=== PATIENT | female | born 1970 | race Caucasian/White ===

== ENCOUNTER → 2022-06-25 11:23 | Outpatient (BNVA) | payer SELFPAY | PROVIDERS: Family Provider Nurse Practitioner; PCP Nurse Practitioner Family; Referring Provider Nurse Practitioner Family; Visit Provider Internal Medicine | DX: E05.90 Thyrotoxicosis, unspecified without thyrotoxic crisis or storm (principal); E04.1 Nontoxic single thyroid nodule | CPT/HCPCS: 36415; 83516; 86376; 86800 ==

== ENCOUNTER 2022-07-02 06:42 | Outpatient (CLI) | payer OTHER, SELFPAY ==
--- NOTE | 2022-07-02 07:00 | US_ITS ---
WS: [email or web address] ULTRASOUND THYROID TECHNIQUE: Ultrasound of the thyroid. CLINICAL INFORMATION: thyroid nodule COMPARISON: Ultrasound thyroid 2007 FINDINGS: Thyroid: Enlarged LEFT greater than RIGHT thyroid lobes with diffuse heterogeneous echotexture Right thyroid lobe: 5.5 cm x 1.7 cm x 1.9 cm RIGHT lobe volume 9.4 cc Small hypoechoic RIGHT inferior thyroid nodule measuring 0.73 x 0.6 x 0.73 cm. Recommend 12 month fol low-up. This is new or increased in size since 2007. Left thyroid lobe: 5.7 cm x 2.4 cm x 2.3 cm. LEFT lobe volume 16.4 cc Previously described complex cyst in the LEFT thyroid has increased in size with a more complex appea lucian today with more solid components. Today this measures approximately 2.7 x 2.2 x 3.1 cm with inc reased vascularity. Isthmus: 0.2 mm. Cervical lymphadenopathy: A few slightly prominent LEFT greater than RIGHT cervical lymph nodes. No l ymphadenopathy. US/US thyroid [id number] IMPRESSION: 1. Enlarged heterogeneous LEFT greater than RIGHT thyroid lobes described abov e. 2. Previously described complex cyst in the LEFT thyroid has increased in size with a more complex appearance today with more solid components. Today this me asures approximately 2.7 x 2.2 x 3.1 cm with increased vascularity. Recommend F urther evaluation with FNA. 3. Small hypoechoic RIGHT inferior thyroid nodule measuring 0.73 x 0.6 x 0.73 cm. Recommend 12 month follow-up. This is new or increased in size since 2007.
== END 2022-07-02 06:43 | disposition home or self-care (01) ==
LOC: RAD 06:45
PROVIDERS: PCP Nurse Practitioner Family; Visit Provider Nurse Practitioner Family
DX: E04.1 Nontoxic single thyroid nodule (principal)
CPT/HCPCS: 76536

== ENCOUNTER 2022-08-03 08:42 | Outpatient (CLI) | payer OTHER, SELFPAY ==
--- NOTE | 2022-08-03 09:15 | US_ITS ---
WS: [email or web address] ULTRASOUND-GUIDED LEFT THYROID NODULE FNA HISTORY: LEFT thyroid nodule. Cystic and solid components with small echogenic foci. Procedure, risks, and complications were explained to the patient. Consent has been obtained. Prior ultrasound 07/02/2022 reviewed. The skin is cleansed with ChloraPrep and anesthetized with 1% buffered lidocaine. FNA performed with 25 gauge needles. mammography technologist is present to fix slides. There is a very small amount o f postprocedure bleeding adjacent to the thyroid which did not increase. US/US biopsy/FNA thyroid [id number] IMPRESSION: Uncomplicated FNA of a LEFT thyroid nodule. Final pathology results pending.
[2022-08-03 09:39] LABS: Thyroid Stimulating Hormone 0.01 uIU/mL (0.27-4.20)
[2022-08-03 10:16] LABS: Free T4 Free Thyroxine 1.08 ng/dL (0.82-1.77)
[2022-08-04 14:50] LABS: T3 Total 140 ng/dL (76-181)
== END 2022-08-03 08:43 | disposition home or self-care (01) ==
LOC: RAD 08:45
PROVIDERS: PCP Nurse Practitioner Family; Visit Provider Nurse Practitioner Family
DX: E04.1 Nontoxic single thyroid nodule (principal)
CPT/HCPCS: 10005; 36415; 84439; 84443; 84480; 88173

== ENCOUNTER 2022-08-25 13:07 | Outpatient (CLI) | payer OTHER, SELFPAY ==
--- NOTE | 2022-08-25 12:45 | US_ITS ---
WS: [email or web address] US pelv w/transvag [id number] HISTORY: pelvic pain and fullness, history of hysterectomy. COMPARISON: None available. Status post hysterectomy. No midline mass identified. No uterus or thickening of the vaginal stump. N o free fluid. Neither ovary is identified within the adnexa. Both transvaginal and transabdominal jean-paul ging was performed. US/US pelv w/transvag [id number] IMPRESSION: Negative pelvic ultrasound. Prior hysterectomy. Neither ovary was identified. No masses.
== END 2022-08-25 13:08 | disposition home or self-care (01) ==
PROVIDERS: PCP Nurse Practitioner Family; Visit Provider Nurse Practitioner Family
DX: N94.10 Unspecified dyspareunia (principal); R10.2 Pelvic and perineal pain
CPT/HCPCS: 76830; 76856

== ENCOUNTER 2022-10-02 09:06 | Outpatient (CLI) | payer OTHER, SELFPAY ==
[2022-10-02 10:51] LABS: Thyroid Stimulating Hormone 0.26 uIU/mL (0.27-4.20)
[2022-10-03 07:44] LABS: T3 Total 131 ng/dL (76-181)
== END 2022-10-02 09:07 | disposition home or self-care (01) ==
PROVIDERS: PCP Nurse Practitioner Family; Visit Provider Internal Medicine
DX: E05.90 Thyrotoxicosis, unspecified without thyrotoxic crisis or storm (principal); E04.1 Nontoxic single thyroid nodule
CPT/HCPCS: 36415; 84439; 84443; 84480

== ENCOUNTER → 2022-10-07 10:35 | Outpatient (BNVA) | payer OTHER, SELFPAY | PROVIDERS: PCP Nurse Practitioner Family; Visit Provider Podiatrist Foot & Ankle Surgery | DX: M25.571 Pain in right ankle and joints of right foot (principal); M25.572 Pain in left ankle and joints of left foot; M24.871 Other specific joint derangements of right ankle, not elsewhere classified; M24.872 Other specific joint derangements of left ankle, not elsewhere classified; R60.0 Localized edema | CPT/HCPCS: 73630 ==

== ENCOUNTER 2022-10-08 08:53 | Outpatient (CLI) | payer OTHER, SELFPAY ==
--- NOTE | 2022-10-08 08:56 | NM_ITS ---
WS: [email or web address] NUCLEAR MEDICINE 24 HOUR I-123 THYROID UPTAKE INDICATION: Hyperthyroidism TECHNIQUE: I-123 24 HOUR THYROID UPTAKE WITH PLANAR IMAGING. 132 UCI RAJ 123 COMPARISON: Ultrasound thyroid July 02, 2022 FINDINGS: Enlarged thyroid. Diffuse homogeneous uptake within the thyroid gland. Normal suprasternal notch marker. Increased 24-hour thyroid uptake 42.5% NORMAL 24H THRYOID UPTAKE 8-35% NM/NM thyroid uptake multi [id number] IMPRESSION: Increased 24-hour thyroid uptake 42.5%
== END 2022-10-08 08:54 | disposition home or self-care (01) ==
LOC: RAD 08:53
PROVIDERS: PCP Nurse Practitioner Family; Visit Provider Internal Medicine
DX: E04.1 Nontoxic single thyroid nodule (principal); E05.90 Thyrotoxicosis, unspecified without thyrotoxic crisis or storm
CPT/HCPCS: 78014; A9516

== ENCOUNTER 2022-11-03 11:36 | Day surgery (SDC) | payer OTHER, SELFPAY ==
[2022-11-02 08:50] VITALS: BMI 35.1
[2022-11-03] VITALS (11 sets, daily range): BP systolic 129–154; BP diastolic 69–93; PULSE 68–84; RESP 16–17; TEMP 36.1–36.7; O2SAT 94–100
--- NOTE | 2022-11-03 11:54 | W.PM.OPSUD ---
Surgery/Procedure H&P Update DATE OF PROCEDURE: November 03, 2022 DATE H&P PERFORMED: 10/20/22 H&P UPDATE INFORMATION: I have reviewed H&P completed within last 30 days, I have examined patient prior to procedure and No changes to prior documentation CHANGES TO PREVIOUS DOCUMENTATION: No changes PREOP DIAGNOSIS: Left thyroid nodule PRIMARY INDICATION FOR PROCEDURE: Left thyroid nodule PLANNED PROCEDURE: Operation Date: 11/03/22 13:20 Proposed Procedures p 46420- left hemithyroidectomy with isthmusectomy E04.1(Left) - Leonard Encarnacion MD
[2022-11-03] MEDS: sodium chloride 0.9% 1,000 ML 30 ML IV (12:15)
[2022-11-03 12:45] LABS: Chloride 104 mmol/L (98-107); Potassium 4.1 mmol/L (3.5-5.1); Sodium 141 mmol/L (136-145)
[2022-11-03 13:11] LABS: Anion Gap 14.1 (5-19); Blood Urea Nitrogen 8 mg/dL (6-20); Calcium 9.5 mg/dL (8.5-10.5); Carbon Dioxide 27 mmol/L (22-29); Glomerular Filtration Rate 87.5 mL/min (90-130); Glucose 86 mg/dL (65-115); Osmolality Calculated 290 mOsm/kg (285-295)
--- NOTE | 2022-11-03 13:22 | ANES.PREANE2 ---
Pre-Anesthetic Assessment Height/Weight: Height 1.5 m Weight 78.925 kg Temp Pulse Resp BP Pulse Ox O2 Del Method 98.1 F 83 17 138/87 96 Room Air 11/03/22 11:58 11/03/22 11:58 11/03/22 11:58 11/03/22 11:58 11/03/22 11:58 11/03/22 11:59 Preop Diagnosis: Left thyroid nodule Operation Date: 11/03/22 13:20 Proposed Procedures p 28318- left hemithyroidectomy with isthmusectomy E04.1(Left) - Leonard Encarnacion MD Familial anesthetic complications: None Was Beta Charlene taken within 24 hours: N/A Was Clonidine taken within 24 hours: N/A Last intake: Intake Last Liquid Date 11/02/22 Last Liquid Time 22:00 Last Solid Date 11/02/22 Last Solid Time 14:00 Social No alcohol and No tobacco Exam alert, oriented x 3, clear to auscultation bilaterally and regular rate & rhythm Airway Mallampati: Class I Dentition: full CV/HEM Hypertension GI Gastroesophageal Reflux Disease Metabolic Morbid Obesity and Thyroid Disease Anesthetic Plan ASA status: 3 Anesthesia: General Risk of > 500 ml blood loss (7ml/kg in children): No Medications/Allergies Home Medications Medication Instructions Recorded Confirmed Last Taken Type naltrexone 8 mg-bupropion 90 mg 2 tab PO BID 30 days #120 tabs 07/28/22 11/03/22 09/29/22 Rx tablet,extended release (Contrave) hydrochlorothiazide 25 mg tablet 25 mg PO DAILY #90 tabs 08/05/22 11/03/22 11/01/22 Rx methimazole 10 mg tablet 5 mg PO DAILY #90 tabs 10/28/22 11/03/22 10/31/22 Rx Allergies Allergy/AdvReac Type Severity Reaction Status Date / Time No Known Allergies Allergy Verified 11/03/22 11:54 Current Medications Generic Name Dose Route Start Last Admin Trade Name Freq PRN Reason Stop Dose Admin Sodium Chloride 1,000 mls @ 30 mls/hr 11/03/22 11:45 11/03/22 12:15 Sodium Chloride 0.9% IV 11/04/22 11:44 30 mls/hr .Q24H WESLEY Administration PFSH Anesthesia Medical History Hypothyroid Family History Mother Cancer lung Father Heart attack Daughter Hypothyroidism Social History Smoking and tobacco status: never smoked Data Anesthesia 11/03/22 12:15 BMP 11/03/22 12:15 Sodium 141 Potassium 4.1 Chloride 104 Carbon Dioxide 27 BUN 8 Creatinine 0.7 Glucose 86 Calcium 9.5 Cardiac Studies: No Data to Display
[2022-11-03] MEDS: ceFAZolin 2,000 MG in sodium chloride 0.9% (plus) 50 ML 100 MG IV (14:08)
[2022-11-03] MEDS: lidocaine-epi 2% 1.7mL Cartridge (OR Only) 3.4 ML XX (14:31)
[2022-11-03] MEDS: neomycin-poly-bacitracin oint 28 gm 1 APPLIC TOPICAL (15:46)
--- NOTE | 2022-11-03 16:09 | PM.OP ---
Operative Report Date of procedure: November 03, 2022 Pre-op diagnosis: Preop Diagnosis Left thyroid nodule Post-op diagnosis: Left thyroid nodule/cyst Post-op findings: Same Procedure done: Left hemithyroidectomy with partial isthmusectomy Implants: Quarter inch Noa drain Specimens removed/disposition: Left thyroid gland with portion of isthmus Pathology: Same. Frozen section requested for diagnostic purposes. Surgeon: Leonard Encarnacion MD Anesthesia: General and Local Estimated blood loss: 25 mL Complications: No complications encountered Findings: Left thyroid gland with nodule approaching 3 cm in diameter. Prior fine-needle aspirations x2 have revealed benign colloid cyst. However the patient is bothered by the mass and the fullness and wishes to have this removed. Therefore the patient is being brought to the operating room to undergo excision of the left thyroid gland. Brief History: 52-year-old female patient with a left thyroid nodule with complex cystic component. Fine-needle aspirations have been benign cyst colloid cysts. However because the patient is bothered by the mass effect and pressure on the neck on that side she is being brought to the operating room to undergo left hemithyroidectomy with partial isthmusectomy for diagnostic purposes. The procedure its risks and complications have been explained in detail. These risks include bleeding and infection and numbness and scarring and swelling and bruising as well as voice change which would be due to vocal cord weakness or paralysis which could be temporary or permanent. Patient understands that there is a possibility of having to have thyroid supplementation in the future or calcium supplementation. With all these things understood and with the understanding that more serious risks associated with anesthesia are potential the consents were signed. Procedure: Description of procedure: The patient was placed on the operating table in the supine position. Adequate general endotracheal tube anesthesia was obtained. The table was positioned for a left thyroidectomy. Sign the site was noted. The area in the neck where the incision would be placed was cleansed with alcohol and then a total of 3.4 mL of 2% Xylocaine was then filtrated into the immediate subcutaneous layer where the incision would be created. The patient was then prepped and draped in usual fashion. Marking pen was used to outline anatomical features including the sternal notch and the notch of the laryngeal cartilage. This was to cm the midline. At this point a timeout was accomplished identifying the patient and date of and planned procedure and medications given and fire risk as well as allergies. With these things understood informed consent was granted and witnessed. A marking pen was used to outline a curvilinear incision in the lower neck about 1.5 cm above the sternal notch. The incision started just across the midline on the right side over to the left side. The incision was created with a low voltage of the cut mode of the Bovie to incise through the skin. Then this was switched over to the coagulation mode. This dissection was then carried down to then a subplatysmal flap was raised for short distance inferiorly and superiorly. Then the median raphae of the strap muscles was identified and dissected down to the isthmus of the thyroid gland. Wheat [place] retractors were used to hold the soft tissues off the gland and the tracheal area. Dissection was then begun inferiorly and dissecting and finding the inferior thyroid artery and supply to the parathyroid gland. This was preserved. Then to elevate the gland more patient the isthmus was incised with the coagulation mode of the Bovie down to the perichondrium of the tracheal rings. Dissection was carried off the anteriormost surface of the trachea. Then dissection was carried out superiorly identifying the vessels and clamping cutting and releasing the superior suspensory ligament. Then careful dissection was carried down to the tracheoesophageal groove on the left side identifying the recurrent laryngeal nerve and following it to its insertion. Then the dissection was carried more laterally releasing the gland completely. Parathyroid glands were preserved with vascular supply. Recurrent laryngeal nerve was preserved in its entirety. The specimen was forwarded to the pathologist for frozen section diagnosis. While that was pending the area of the deep surgical defect was irrigated and dried. No active bleeding was encountered. Just minimal ooze at the insertion area of the recurrent nerve. This was treated with starch application. The pathology returned as benign colloid cysts with no evidence of malignancy. 1/4 inch [place] drain was cut to size and placed to the superiormost aspect of the surgical defect and brought out through the central neck incision area. Reviewed most sutured to the neck skin inferiorly with 5-0 nylon suture. The strap muscles were approximated with 4-0 chromic suture. The platysma layer was then closed with interrupted 4-0 chromic. Then the subcutaneous layer was closed with interrupted 4-0 chromic. The skin was then closed with a running subcuticular 5-0 nylon. Skin bridges were placed to allow for easier removal. The skin was then cleansed. Dermabond was applied over the incision for added stability. After this was dry Neosporin ointment was applied around the drain site and then Kerlix fluffs and Kerlix rolls were used to apply the neck dressing. This was applied to make sure that the tension was applied for pressure dressing but not too tight around the neck. Drapes were removed. Patient was then returned to anesthesia for wake-up and extubation. The patient tolerated the procedure well had an estimated blood loss of 25 mL and arrived in recovery in stable condition.
--- NOTE | 2022-11-03 17:21 | SUR.PHASEII ---
16:55 RECEIVED PATIENT. AIRWAY PATENT. NO BLEEDING NOTED.. ACTIVE HEATING APPLIED. 17:15 COLD PO FLUIDS GIVEN. DENIES PAIN.
[2022-11-03] MEDS: oxyCODONE-APAP 5-325 mg Tablet 1 TAB PO (17:55)
--- NOTE | 2022-11-03 18:02 | ANE.PACU2 ---
Inpatient post-anesthesia follow up: Airway intact: Yes Vital signs: Temperature 97.4 F Pulse Rate 77 Respiratory Rate 16 Blood Pressure 140/74 Pulse Oximetry 95 Oxygen Delivery Me thod Room Air Oxygen Flow Rate 6 Fraction of Inspir ed Oxygen Hydration adequate: Yes Nausea and vomiting: No Pain level: 1 Mental status: Baseline
--- NOTE | 2022-11-03 18:05 | SUR.PHASEII ---
18: 00 TOLERATING PO FLUIDS WELL. MEDICATED FOR PAIN. NO DRAINAGE OR DYSPNEA NOTED.
== END 2022-11-03 18:30 | disposition home or self-care (01) ==
PROVIDERS: Anesthesiology; PCP Nurse Practitioner Family; Visit Provider Otolaryngology
PROC: (CPT 60225; principal; 2022-11-03 13:10)
DX: E04.1 Nontoxic single thyroid nodule (principal); E66.01 Morbid (severe) obesity due to excess calories; Z68.35 Body mass index [BMI] 35.0-35.9, adult; E03.9 Hypothyroidism, unspecified; I10 Essential (primary) hypertension
CPT/HCPCS: 60225; 36415; 80048; 88307; 88331; J0690; J1100; J2250; J2405; J2704; J2710; J3010; J3490; J7030

== ENCOUNTER 2022-11-24 11:19 | Outpatient (CLI) | payer OTHER, SELFPAY ==
[2022-11-24 13:02] LABS: Free T4 Free Thyroxine 0.73 ng/dL (0.82-1.77); Thyroid Stimulating Hormone 5.93 uIU/mL (0.27-4.20)
[2022-11-25 23:55] LABS: T3 Total 96 ng/dL (76-181)
== END 2022-11-24 11:20 | disposition home or self-care (01) ==
PROVIDERS: PCP Nurse Practitioner Family; Visit Provider Internal Medicine
DX: E05.90 Thyrotoxicosis, unspecified without thyrotoxic crisis or storm (principal)
CPT/HCPCS: 36415; 84439; 84443; 84480

== ENCOUNTER → 2022-12-30 10:19 | Outpatient (BNVA) | payer OTHER, SELFPAY | PROVIDERS: PCP Nurse Practitioner Family; Visit Provider Internal Medicine Rheumatology | DX: Z79.899 Other long term (current) drug therapy (principal); M19.90 Unspecified osteoarthritis, unspecified site; Z11.59 Encounter for screening for other viral diseases; Z11.1 Encounter for screening for respiratory tuberculosis; M32.9 Systemic lupus erythematosus, unspecified; Z71.85 Encounter for immunization safety counseling | CPT/HCPCS: 36415; 73130; 73630; 80076; 82306; 82565; 85025; 86200; 86225; 86235; 86431; 86480; 86704; 86803; 87340 ==

== ENCOUNTER 2023-03-08 10:52 | Outpatient (CLI) | payer OTHER, SELFPAY ==
[2023-03-08 12:08] LABS: Free T4 Free Thyroxine 1.12 ng/dL (0.82-1.77)
[2023-03-09 12:09] LABS: T3 Total 127 ng/dL (76-181)
== END 2023-03-08 10:53 | disposition home or self-care (01) ==
LOC: LAB 10:53
PROVIDERS: PCP Nurse Practitioner Family; Visit Provider Internal Medicine
DX: E04.1 Nontoxic single thyroid nodule (principal); E05.90 Thyrotoxicosis, unspecified without thyrotoxic crisis or storm
CPT/HCPCS: 36415; 84439; 84443; 84480

== ENCOUNTER → 2023-08-25 16:07 | Outpatient (BNVA) | payer OTHER, SELFPAY | PROVIDERS: PCP Nurse Practitioner Family; Visit Provider Nurse Practitioner Family | DX: R31.9 Hematuria, unspecified (principal); R10.9 Unspecified abdominal pain; N20.0 Calculus of kidney; J18.9 Pneumonia, unspecified organism; R05.9 Cough, unspecified; Z12.31 Encounter for screening mammogram for malignant neoplasm of breast; Z53.20 Procedure and treatment not carried out because of patient's decision for unspecified reasons; R05.1 Acute cough | CPT/HCPCS: 80053; 82043; 85025 ==

== ENCOUNTER 2023-08-27 06:19 | Outpatient (CLI) | payer OTHER, SELFPAY ==
--- NOTE | 2023-08-27 06:30 | USR_ITS ---
PROCEDURE INFORMATION: Exam: US Retroperitoneal Complete; Kidneys, Aorta, IVC. Exam date and time: 08/27/2023 6:30 AM Age: 52 years old Clinical indication: Abdominal pain; Acute; Additional info: Hematuria TECHNIQUE: Imaging protocol: Real-time ultrasound of the retroperitoneum with image documentation. Complete exam focused on the kidneys, aorta, and inferior vena cava. COMPARISON: US pelv w/transvag [id number] 08/25/2022 1:30 PM FINDINGS: Right kidney: No stones. No hydronephrosis. Left kidney: No stones. No hydronephrosis. Aorta: Normal. No aneurysm. Common iliac arteries: Normal. Inferior vena cava: Normal. US/US renal BI* [id number] IMPRESSION: No acute findings.
--- NOTE | 2023-08-27 06:42 | XRR_ITS ---
PROCEDURE INFORMATION: Exam: XR Chest Exam date and time: 08/27/2023 6:52 AM Age: 52 years old Clinical indication: Cough TECHNIQUE: Imaging protocol: Radiologic exam of the chest. Views: 2 views. COMPARISON: US renal BI* [id number] 08/27/2023 6:30 AM FINDINGS: Lungs: Unremarkable. No consolidation. Pleural spaces: Unremarkable. No pleural effusion. No pneumothorax. Heart/Mediastinum: Unremarkable. No cardiomegaly. Bones/joints: Unremarkable. XR/XR chest 2V* [id number] IMPRESSION: No acute findings.
== END 2023-08-27 06:20 | disposition home or self-care (01) ==
PROVIDERS: PCP Nurse Practitioner Family; Visit Provider Nurse Practitioner Family
DX: R10.9 Unspecified abdominal pain (principal); R31.9 Hematuria, unspecified; R05.1 Acute cough; J18.9 Pneumonia, unspecified organism
CPT/HCPCS: 71046; 76770

== ENCOUNTER 2023-09-02 07:51 | Outpatient (CLI) | payer OTHER, SELFPAY ==
--- NOTE | 2023-09-02 08:00 | MM_ITS ---
WS: [id number] SCREENING DIGITAL BREAST TOMOSYNTHESIS MAMMOGRAM WITH CAD HISTORY: screening COMPARISON: 10/08/2009 Bilateral CC and MLO with tomosynthesis and synthetic mammography submitted. Computer aided detection analyzed. Breast composition: The breasts are heterogeneously dense, which may obscure small masses. Ill-define d asymmetry in the posterior RIGHT breast near the nipple line and just above the nipple line needs t o be reevaluated. No additional abnormality. No distortion or calcification. MM/[place] [id number] IMPRESSION: BI-RADS: 0-Incomplete: Need additional imaging evaluation FOLLOW UP: Need Additional Imaging RIGHT breast: Spot compression views (CC and MLO). True ML. Ultrasound to follo w if abnormality persists.
== END 2023-09-02 07:52 | disposition home or self-care (01) ==
LOC: RAD 07:51
PROVIDERS: PCP Nurse Practitioner Family; Visit Provider Nurse Practitioner Family
DX: Z12.31 Encounter for screening mammogram for malignant neoplasm of breast (principal); R92.333 Mammographic heterogeneous density, bilateral breasts; R92.8 Other abnormal and inconclusive findings on diagnostic imaging of breast
CPT/HCPCS: 77063; 77067

== ENCOUNTER 2023-09-14 12:37 | Outpatient (CLI) | payer OTHER, SELFPAY ==
--- NOTE | 2023-09-14 13:00 | MM_ITS ---
WS: [id number] ADDITIONAL VIEWS RIGHT MAMMOGRAM WITH DIGITAL BREAST TOMOSYNTHESIS. HISTORY: abnormal mammo COMPARISON: 09/02/2023 and 10/08/2009 Spot compression views RIGHT breast in CC, MLO projections and true ML submitted with digital breast tomosynthesis and SM. The asymmetry in the posterior medial RIGHT breast resolves with additional imaging. There is still a patchy area of asymmetry but there is no distortion and this is similar to the prior study from 2009 . No suspicious mass. MM/[place] [id number] IMPRESSION: BI-RADS: 2-Benign FOLLOW UP: 1 Year Follow-up Recommend return to annual screening mammography.
== END 2023-09-14 12:38 | disposition home or self-care (01) ==
LOC: RAD 12:37
PROVIDERS: PCP Nurse Practitioner Family; Visit Provider Nurse Practitioner Family
DX: R92.8 Other abnormal and inconclusive findings on diagnostic imaging of breast (principal); N64.89 Other specified disorders of breast
CPT/HCPCS: 77061; G0279

== ENCOUNTER 2023-11-01 13:14 | Outpatient (CLI) | payer SELFPAY ==
[2023-11-01 14:12] LABS: Basophils % 0.6 %; Eosinophils # 0.1 10^3/uL (0.0-0.8); Eosinophils % 0.9 %; Lymphocytes # 2.2 10^3/uL (0.8-4.8); Lymphocytes % 33.7 %; Mean Corpuscular HGB Conc 32.8 g/dL (30-55); Mean Corpuscular Hemoglobin 30.5 pg (27-33); Mean Corpuscular Volume 93.2 fl (85-98); Mean Platelet Volume 10.6 fL (7.4-10.4); Monocytes # 0.5 10^3/uL (0.2-0.9); Monocytes % 7.6 %; Neutrophils # 3.72 10^3/uL (1.8-7.7); Neutrophils % 56.9 %; Nucleated Red Blood Cells % 0 %; Platelet Count 346 10^3/cmm (157-399); Red Blood Count 4.29 10^6/uL (3.85-5.65); Red Cell Distribution Width 12.5 % (12.1-15.1); White Blood Count 6.55 10^3/uL (3.29-11.43)
[2023-11-01 14:46] LABS: Alanine Aminotransferase 18 U/L (0-33); Albumin Level 4.4 g/dL (3.5-5.2); Alkaline Phosphatase 94 U/L (35-105); Aspartate Amino Transferase 20 U/L (0-32); C Reactive Protein 3.6 mg/L (0.0-4.9); Globulin 2.8 g/dL (1.3-4.6); Glomerular Filtration Rate 65.2 mL/min (90-130); Thyroid Stimulating Hormone 0.83 uIU/mL (0.27-4.20); Total Bilirubin 0.4 mg/dL (0.15-1.2); Total Protein 7.2 g/dL (6.6-8.7)
[2023-11-01 15:13] LABS: Free T4 Free Thyroxine 1.26 ng/dL (0.82-1.77)
== END 2023-11-01 13:15 | disposition home or self-care (01) ==
PROVIDERS: PCP Nurse Practitioner Family; Visit Provider Internal Medicine Rheumatology
DX: M32.9 Systemic lupus erythematosus, unspecified (principal); Z79.899 Other long term (current) drug therapy
CPT/HCPCS: 36415; 80076; 82565; 84439; 84443; 85025; 86140

== ENCOUNTER → 2024-05-18 13:08 | Outpatient (BNVA) | payer OTHER, SELFPAY | PROVIDERS: Visit Provider Internal Medicine Rheumatology | DX: M32.9 Systemic lupus erythematosus, unspecified (principal); Z79.899 Other long term (current) drug therapy | CPT/HCPCS: 36415; 80076; 82565; 85025; 85651; 86140 ==

== ENCOUNTER → 2024-06-01 11:55 | Outpatient (BNVA) | payer OTHER, SELFPAY | PROVIDERS: PCP Nurse Practitioner Family; Visit Provider Internal Medicine | DX: E05.90 Thyrotoxicosis, unspecified without thyrotoxic crisis or storm (principal); R39.9 Unspecified symptoms and signs involving the genitourinary system | CPT/HCPCS: 36415; 81000; 84439; 84443 ==

== ENCOUNTER 2024-06-13 09:25 | Outpatient (CLI) | payer OTHER, SELFPAY ==
--- NOTE | 2024-06-13 12:15 | US_ITS ---
WS: [id number] THYROID ULTRASOUND HISTORY: thyroid mass COMPARISON: 08/03/2022, 07/02/2022 Right lobe: 1.6 cm x 1.3 cm x 4.5 cm (w x ap x l). Volume: 4.2 cm3. Mild heterogeneity and coarseness throughout the RIGHT thyroid. No mass identified. Previously described hypoechoic area in the lower pole is less distinct and blends in with the remaining thyroid. No adverse change. Left lobe: Status post LEFT thyroidectomy. Isthmus: 0.2 cm. US/US thyroid [id number] IMPRESSION: 1. Status post LEFT thyroidectomy. 2. TI-RADS 2; no suspicious RIGHT thyroid nodule.
== END 2024-06-13 09:26 | disposition home or self-care (01) ==
PROVIDERS: PCP Nurse Practitioner Family; Visit Provider Internal Medicine
DX: E04.1 Nontoxic single thyroid nodule (principal); Z98.890 Other specified postprocedural states; R93.89 Abnormal findings on diagnostic imaging of other specified body structures
CPT/HCPCS: 76536

== ENCOUNTER → 2024-08-01 11:19 | Outpatient (BNVA) | payer OTHER, SELFPAY | PROVIDERS: PCP Nurse Practitioner Family; Visit Provider Nurse Practitioner Family | DX: Z87.898 Personal history of other specified conditions (principal) | CPT/HCPCS: 81000 ==

== ENCOUNTER 2024-09-05 09:38 | Outpatient (CLI) | payer BC, OTHER, SELFPAY ==
--- NOTE | 2024-09-05 10:00 | MM_ITS ---
WS: [email or web address] BILATERAL 3D TOMOSYNTHESIS DIGITAL SCREENING MAMMOGRAPHY WITH CAD CLINICAL INFORMATION: Z12.39 - Encounter for other screening for malignant neop... HISTORY: Screening mammogram. No current complaints. COMPARISON: 2023 TECHNIQUE: Bilateral CC and MLO views. FINDINGS: The breasts are composed of heterogeneous fibroglandular density tissue, which can limit the detection of small underlying mass lesions. No suspicious mass, asymmetry, calcifications, or architectural distortion. No evidence of malignancy. MM/MM [facility] tomosynthesis [id number] IMPRESSION: DENSITY: The breasts are heterogeneously dense, which may obscure small masses. BI-RADS: 1 - Negative FOLLOW UP: 1 Year Follow-up Recommend return to annual screening mammography.
== END 2024-09-05 09:39 | disposition home or self-care (01) ==
LOC: RAD 09:40
PROVIDERS: PCP Nurse Practitioner Family; Visit Provider Nurse Practitioner Family
DX: Z12.31 Encounter for screening mammogram for malignant neoplasm of breast (principal); R92.333 Mammographic heterogeneous density, bilateral breasts
CPT/HCPCS: 77063; 77067

== ENCOUNTER → 2024-10-17 14:41 | Outpatient (BNVA) | payer BC, OTHER, SELFPAY | PROVIDERS: PCP Nurse Practitioner Family; Visit Provider Internal Medicine Rheumatology | DX: Z79.899 Other long term (current) drug therapy (principal) | CPT/HCPCS: 36415; 80076; 82565; 85025; 85651; 86140; 86480 ==

== ENCOUNTER → 2025-03-07 16:17 | Outpatient (BNVA) | payer BC, OTHER, SELFPAY | PROVIDERS: PCP Nurse Practitioner Family; Visit Provider Nurse Practitioner Family | DX: E05.90 Thyrotoxicosis, unspecified without thyrotoxic crisis or storm (principal) | CPT/HCPCS: 80053; 80061; 84443; 85007; 85027 ==

== ENCOUNTER 2025-03-20 13:50 | Outpatient (CLI) | payer BC, OTHER, SELFPAY ==
--- NOTE | 2025-03-20 14:15 | USR_ITS ---
PROCEDURE INFORMATION: Exam: US Soft Tissue Head and Neck, Thyroid Exam date and time: 03/20/2025 2:25 PM Age: 54 years old Clinical indication: Condition or disease; Thyroid disorder; Thyrotoxycosis or graves' disease; Type not specified; Severity not specified; Additional info: E05.90 - thyrotoxicosis, unspecified without thyrotoxic c. . . TECHNIQUE: Imaging protocol: Real-time ultrasound scan of the neck with image documentation. Exam focused on the thyroid. COMPARISON: US thyroid [id number] 06/13/2024 9:31 AM FINDINGS: Right thyroid lobe: Right lobe of thyroid measures 4.5 cm sagittal diameter, 1.7 cm AP diameter 1.5 cm transverse diameter. Mildly heterogeneous. Nodule deep right lobe of thyroid hypoechoic to isoechoic again seen. It measures a proximally 0.6 cm sagittal diameter, 0.5 cm AP diameter and 0.7 cm transverse diameter. It has not increased in size since previous study of 06/13/2024. This would be a TR 4 nodule and no follow-up recommended. Left thyroid lobe: Left lobectomy. Isthmus: No nodules. Lymph nodes: There is a left cervical chain lymph node measuring 1.1 cm in greatest diameter showing normal morphology with fatty yin. No significant cortical thickening. US/US thyroid [id number] IMPRESSION: 1. Left thyroid lobectomy. 2. TR 4 nodule right lobe thyroid has not changed in size, no follow-up imaging recommended. 3. No suspicious adenopathy.
== END 2025-03-20 13:51 | disposition home or self-care (01) ==
LOC: RAD 13:51
PROVIDERS: PCP Nurse Practitioner Family; Visit Provider Nurse Practitioner Family
DX: E05.90 Thyrotoxicosis, unspecified without thyrotoxic crisis or storm (principal); E89.0 Postprocedural hypothyroidism; Z90.89 Acquired absence of other organs; E04.1 Nontoxic single thyroid nodule
CPT/HCPCS: 76536